=== PATIENT | male | born 1940 | race Caucasian/White ===

== ENCOUNTER 2018-07-25 10:16 | Inpatient (IN) | payer MEDICARE, OTHER ==
[~2018-07-25] VITALS: Ht 182.9 cm; Wt 123.4 kg
--- NOTE | ~2018-07-25 | HP ---
PATIENT: SARAIH ANTONY MEDICAL RECORD: [id number] ACCOUNT: [id number] LOCATION:[id number] : [id number] ADMISSION DATE: 07/25/18 PCP: No PCP HISTORY AND PHYSICAL EXAMINATION DATE OF ADMISSION: 07/25/2018 CHIEF COMPLAINT: Abdominal pain. HISTORY OF PRESENT ILLNESS: The patient is a 78-year-old gentleman who states, for the past 48 hours, he has not felt well. He has had chills. He has had no sweats. He has had no fever. He did go to the [facility] yesterday, was given some type of an antibiotic for sinus infection. The patient states he has had intractable hiccups over the past 24 hours as well. He has had no cough and no congestion. He presented to the Emergency Room where he had a CT of his abdomen and pelvis which did reveal no intra-abdominal abnormalities, but did note to have right lower lobe pneumonia. We felt the patient warranted admission. PAST MEDICAL HISTORY: Apparently, the patient had myocardial infarction back in the 80s. He has had no stents and no bypass surgeries. He has had history of hyperlipidemia as well as hypertension. He states that his blood sugars have been running in the 150 range. FAMILY HISTORY: Father in his 90s with CHF. Mother in 80s. SOCIAL HISTORY: The patient was born in [place] and grew up in [place]. 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 He is camping at [facility] along with his . He has no local PCP. He is admitted to [facility]. PAST SURGICAL HISTORY: The patient has had cholecystectomy, tonsillectomy, and appendectomy. ALLERGIES: PENICILLIN. REVIEW OF SYSTEMS: CONSTITUTIONAL: He denies any headache, seizure, or syncope. Denies change in visual or auditory acuity. PULMONARY: He has had no cough and no congestion. CARDIOVASCULAR: He has had no chest pain, palpitation, or orthopnea. GASTROINTESTINAL: No chronic nausea, vomiting, melena, or hematochezia. GENITOURINARY: No urgency, frequency, or dysuria. PHYSICAL EXAMINATION: VITAL SIGNS: The patient's temperature is 98, pulse 65, respirations 20, blood pressure 124/50, and O2 sat is 97%. HEENT: Head is normocephalic. No lesions. Ears; TMs are clear. Eyes; pupils are equal, round, and reactive to light. His extraocular movements are intact. His nasal cavity, oral cavity, and oropharynx are clear. NECK: Supple. There is no adenopathy. HEART: Regular rate and rhythm without any murmurs, gallops, or rubs. LUNGS: He has some rales in right lower lung. ABDOMEN: Soft and nontender. No organomegaly can be appreciated. EXTREMITIES: Lower extremities have no edema. HISTORY AND PHYSICAL [id number] SARAHI ANTONY LABORATORY DATA: The patient's white count is elevated at 11.1, hemoglobin 12.4, hematocrit 35.7, and platelets are 164. Sodium is 134, potassium 2.7, chloride 95, BUN 25, creatinine 1.2. Blood sugar 154. Urinalysis shows moderate bacteria. ASSESSMENT: Right lower lobe pneumonia, hypokalemia, diabetes mellitus, hyponatremia, hypertension, history of arteriosclerotic heart disease. PLAN: The patient will be admitted. He will be given updraft therapy, O2 supplementation, and Levaquin 750 IV q. 12 hours. He will have blood cultures and urine cultures obtained. Mucinex 600 mg p.o. b.i.d. Repeat chest x-ray in a.m. Correct his sodium as well as potassium. TRANSINT:[id number] Voice Confirmation ID: [id number] DOCUMENT ID: [id number] GERSON DRIVER MD CC: [id number] DICTATION DATE: 07/25/18 1439 COMPLAINT CLERK: 07/25/18 1625 ADM IN [facility] [address] [place] [address]
[2018-07-25 10:22] VITALS: BP 124/50
[2018-07-25] MEDS ORDERED: TENORMIN50 MG PO (10:26)
[2018-07-25] MEDS ORDERED: ASPIRIN EC81 M1 PO (10:26)
[2018-07-25] MEDS ORDERED: JANUVIA100 MG PO (10:27)
[2018-07-25] MEDS ORDERED: PROSCAR5 MG (10:27)
[2018-07-25] MEDS ORDERED: FLOMAX0.4 MG PO (10:27)
[2018-07-25] MEDS ORDERED: LESCOL XL80 MG PO (10:28)
[2018-07-25 11:00] VITALS: BP 115/48
[2018-07-25 11:45] LABS: BASOPHILS 0.1 % (0-2); EOSINOPHILS 0 % (0-7); HEMATOCRIT 35.7 % (42.0-54.0); HEMOGLOBIN 12.4 g/dL (13.5-17.5); IMMATURE GRANULOCYTES 0.4 % (0-5); LYMPHOCYTES 9.2 % (15-50); MCHC 34.7 g/dL (31.0-37.0); MCV 89.3 fL (80.0-100.0); MEAN PLATELET VOLUME 9.8 fL (7.4-10.4); MONOCYTES 8.6 % (2-11); NEUTROPHILS 81.7 % (40-80); PLATELET COUNT 164 10x3/uL (130-400); RDW 14.5 % (11.5-14.5); WBC 11.1 10x3/uL (4.8-10.8)
[2018-07-25 12:00] LABS: ALBUMIN 2.8 g/dL (3.4-5.0); ANION GAP 11.3 mmol/L (8-16); BILIRUBIN - TOTAL 1.19 mg/dL (0.2-1.3); CALCIUM 8.8 mg/dL (8.5-10.1); CARBON DIOXIDE 30.4 mmol/L (21.0-32.0); CREATININE - SERUM 1.2 mg/dL (0.6-1.3); PROTEIN - SERUM 7.1 g/dL (6.4-8.2)
[2018-07-25 12:01] VITALS: BP 116/46
[2018-07-25 12:01] LABS: POTASSIUM - SERUM 2.7 mmol/L (3.5-5.1)
[2018-07-25 13:40] LABS: APPEARANCE CLEAR (CLEAR); BILIRUBIN NEGATIVE (NEGATIVE); COLOR YELLOW (YELLOW); GLUCOSE 50 mg/dL (NEGATIVE); KETONE NEGATIVE (NEGATIVE); NITRITE NEGATIVE (NEGATIVE); PROTEIN TRACE mg/dL (NEGATIVE); SPECIFIC GRAVITY 1.015 (1.005-1.020)
[2018-07-25 13:42] LABS: RED CELLS - URINE 0-5 /hpf (0-5); WHITE CELLS - URINE 0-5 /hpf (0-5)
[2018-07-25 13:43] LABS: AMORPHOUS SEDIMENT <1+ /lpf (NONE SEEN); BACTERIA MODERATE /hpf (NONE SEEN); MUCUS <1+ /lpf (NONE SEEN)
[2018-07-25 15:09] VITALS: BP 123/63
[2018-07-25 15:40] VITALS: BMI 36.9
[2018-07-25 20:05] VITALS: BP 128/68
[2018-07-26 04:12] LABS: BASOPHILS 0.1 % (0-2); EOSINOPHILS 0.1 % (0-7); HEMATOCRIT 32.7 % (42.0-54.0); HEMOGLOBIN 11.1 g/dL (13.5-17.5); IMMATURE GRANULOCYTES 0.6 % (0-5); LYMPHOCYTES 10.3 % (15-50); MCH 30.5 pg (26.0-34.0); MCHC 33.9 g/dL (31.0-37.0); MCV 89.8 fL (80.0-100.0); MEAN PLATELET VOLUME 10.4 fL (7.4-10.4); MONOCYTES 10.8 % (2-11); NEUTROPHILS 78.1 % (40-80); PLATELET COUNT 176 10x3/uL (130-400); RBC 3.64 10x6/uL (4.20-6.10); RDW 14.8 % (11.5-14.5); WBC 10.9 10x3/uL (4.8-10.8)
[2018-07-26 04:25] LABS: ANION GAP 9.3 mmol/L (8-16); CALCIUM 7.8 mg/dL (8.5-10.1); CARBON DIOXIDE 28.3 mmol/L (21.0-32.0); CREATININE - SERUM 1.3 mg/dL (0.6-1.3)
[2018-07-26 04:27] LABS: POTASSIUM - SERUM 2.6 mmol/L (3.5-5.1)
[2018-07-26 05:22] VITALS: BP 128/67
[2018-07-26 08:05] VITALS: BP 120/67
[2018-07-26 12:05] VITALS: Ht 182.9 cm; Wt 123.4 kg
[2018-07-26 15:42] VITALS: BP 127/65
[2018-07-26 21:04] VITALS: BP 116/67
[2018-07-27 04:25] VITALS: BP 123/71
[2018-07-27 04:51] LABS: BASOPHILS 0.3 % (0-2); EOSINOPHILS 0.9 % (0-7); HEMATOCRIT 33.3 % (42.0-54.0); HEMOGLOBIN 11.1 g/dL (13.5-17.5); LYMPHOCYTES 15.1 % (15-50); MCH 29.9 pg (26.0-34.0); MCHC 33.3 g/dL (31.0-37.0); MCV 89.8 fL (80.0-100.0); MEAN PLATELET VOLUME 10.4 fL (7.4-10.4); MONOCYTES 12.7 % (2-11); PLATELET COUNT 160 10x3/uL (130-400); RBC 3.71 10x6/uL (4.20-6.10); RDW 14.9 % (11.5-14.5)
[2018-07-27 04:58] LABS: WBC 7.8 10x3/uL (4.8-10.8)
[2018-07-27 05:14] LABS: ANION GAP 12.4 mmol/L (8-16); BILIRUBIN - TOTAL 0.81 mg/dL (0.2-1.3); CALCIUM 7.7 mg/dL (8.5-10.1); CARBON DIOXIDE 27.7 mmol/L (21.0-32.0); CREATININE - SERUM 1.2 mg/dL (0.6-1.3); MAGNESIUM - SERUM 1.9 mg/dL (1.8-2.4); PHOSPHOROUS 2.7 mg/dL (2.5-4.9); POTASSIUM - SERUM 3.1 mmol/L (3.5-5.1); PROTEIN - SERUM 5.9 g/dL (6.4-8.2)
[2018-07-27 08:08] VITALS: BP 114/68
[2018-07-27 11:45] VITALS: BP 133/75
[2018-07-27] MEDS ORDERED: K-TAB10 MEQ PO (15:37)
[2018-07-27] MEDS ORDERED: LEVAQUIN750 MG PO (15:37)
== END 2018-07-27 17:09 | disposition home or self-care (01) | DRG 194 ==
LOC: D.ER 10:16 → D.EDHOLD 11:35 → D.MS 11:35 → D.SDCHOLD 07-27 10:51 → D.MS 07-27 10:53
PROVIDERS: Emergency Medicine; Family Medicine
DX: J18.9 Pneumonia, unspecified organism (principal); E87.1 Hypo-osmolality and hyponatremia; E87.6 Hypokalemia; D64.9 Anemia, unspecified; K59.00 Constipation, unspecified; E11.9 Type 2 diabetes mellitus without complications; I10 Essential (primary) hypertension; F41.9 Anxiety disorder, unspecified; I25.10 Atherosclerotic heart disease of native coronary artery without angina pectoris; R53.1 Weakness; N40.0 Benign prostatic hyperplasia without lower urinary tract symptoms